=== PATIENT | male | born 1950 | race Caucasian/White ===

== ENCOUNTER 2016-11-25 21:48 | Emergency (ER) | payer OTHER ==
[~2016-11-25] VITALS: Ht 165.1 cm; Wt 68.0 kg
[2016-11-25 21:59] VITALS: BP 157/79
--- NOTE | 2016-11-25 22:14 | ED GENERAL ADULT ---
History of Present Illness General Chief Complaint: Laceration Procedure Stated Complaint: BLEEDING FROM WOUND CAUTERIZED 2 WEEKS AGO Source: patient Exam Limitations: no limitations Allergies Coded Allergies: MDX - Metoclopramide (From REGLAN) (rash 08/19/11) Uncoded Allergies: Allergy Other N Med Allergies N Triage Note: PT TO ED FOR BLEEDING FROM THE SIDE OF HIS RIGHT NOSTRIL, PT STATING HE HAD AN AREA OF SKIN CANCER REMOVED TWO WEEKS AGO AND HAS HAD DIFFICULTY WITH AREA BLEEDING EVER SINCE. ACTIVELY BLEEDING IN TRIAGE, PRESSURE APPLIED WITH ABD PAD. NO THINNERS. Triage Nurses Notes Reviewed? yes Onset: Just prior to arrival Duration: minute(s): (45) Timing: recent history Injury Environment: home Severity: moderate Severity Numbers: 5 No Modifying Factors: none HPI: Patient is a 66-year-old male presenting to the emergency department with chief complaint of bleeding from the right side of his nose. Patient reports that he had a skin cancer removed 3 months ago from a surgeon and was doing well and had an episode of bleeding approximately 2 weeks ago. He saw the surgeon in the office and they had a cauterize the lesion. He's been okay ever since. Denies any lightheadedness dizziness or fatigue. Denies any trauma to the nose. He reports that he was just making a cup of tea when it started bleeding again today. Denies being on any blood thinners. Denies any headaches. No nausea vomiting fevers or chills chest pain or shortness of breath. (MELONIE CASTANEDA,CHIVO) Vital Signs & Intake/Output Vital Signs & Intake/Output Vital Signs Date Time Temp Pulse Resp B/P Pulse O2 O2 Flow FiO2 Ox Delivery Rate 11/25 2210 Room Air 11/25 2159 98.3 89 15 157/79 100 Room Air ED Intake and Output 11/26 0000 11/25 1200 Intake Total Output Total Balance Patient 150 lb Weight Past History Travel History Traveled to [place] past 21 day No Medical History Any Pertinent Medical History? 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 No (CHIVO OBANDO) Review of Systems Review of Systems Constitutional: Reports: no symptoms. Comments Review of systems: See HPI, All other systems negative. Constitutional, no chills fever or weight loss HEENT: No visual changes no sore throat no congestion Cardiovascular: No chest pain ,palpitation Skin, no jaundice no rashes Respiratory: No dyspnea cough sputum or hemoptysis GI: No nausea no vomiting : No dysuria No hematuria Muscle skeletal: no back pain, no neck pain, Neurologic: No numbness no confusion NO ZAYAS Psych: No stress anxiety Immunology: No splenectomy or history of AIDS (CHIVO OBANDO) Physical Exam Physical Exam General Appearance: well developed/nourished, no apparent distress, alert, awake , comfortable Comments: Well-developed well-nourished person in no acute distress HEENT: Pupils equally round and reactive to light and accommodation. Nose has bleeding lesion. No septal hematoma appreciated. No pallor to palpable conjunctiva. Pharynx normal. No swelling or edema. Neck: Normal inspection Back: NontendeR Cardiovascular: Regular rate and rhythms no murmurs rubs or gallops, normal JVP Respiratory: No respiratory distress. Extremity: No edema Neuro: Alert oriented x3, motor sensory normal Skin: Bleeding 1 cm lesion noted on the right nARE. No surrounding erythema or edema. Nontender to palpation. Psych: Mood and affect is normal, memory and judgment is normal. Core Measures ACS in differential dx? No CVA/TIA Diagnosis: No Severe Sepsis Present: No Septic Shock Present: No (CHIVO OBANDO) Progress Differential Diagnoses I considered the following diagnoses in my evaluation of the patient: Laceration, abrasion, contusion, hematoma, bleeding at the surgical incisioN site Plan of Care: 11/25/2016 10:22:11 PM patient is alert and oriented, well-appearing, not on any blood tHINNERS. KALSTAT APPLIED. Electrocautery attempted, call staff applied afterwards. Pressure will be held. Initial ED EKG: none Hand-Off Endorsed To: EDNA RENEE MD Endorsed Time: 2257 Pending: other (CHIVO OBANDO) Differential Diagnoses I considered the following diagnoses in my evaluation of the patient: Plan of Care: 23:55 pm patient sleeping, no active bleeding. Patient discharged and he will follow up with his pathology tech. (EDNA RENEE MD) Departure Departure Disposition: HOME OR SELF CARE Condition: Stable Clinical Impression Primary Impression: Hemorrhage of skin lesion Referrals: SHADY JOHNSON MD (PCP/Family) Additional Instructions: Follow-up with your surgeon tomorrow. Return for worsening symptoms or concerns. Avoid touching the area. Departure Forms: Customer Survey General Discharge Information (CHIVO OBANDO) Departure Time of Disposition: 2358 PA/WINDOW DRAPER Co-Sign Statement Statement: ED Attending supervision documentation- [X] I saw and evaluated the patient. I have also reviewed all the pertinent lab results and diagnostic results. I agree with the findings and the plan of care as documented in the PA's/WINDOW DRAPER's documentation. [X] I have reviewed the ED Record and agree with the PA's/WINDOW DRAPER's documentation. [] Additions or exceptions (if any) to the PAs/WINDOW DRAPER's note and plan are summarized below: [] (EDNA RENEE MD) Critical Care Note Critical Care Note Critical Care Time: non-applicable (CHIVO OBANDO)
== END 2016-11-26 00:22 ==
LOC: ERH 21:48
DX: L98.9 Disorder of the skin and subcutaneous tissue, unspecified (principal); R23.3 Spontaneous ecchymoses
CPT/HCPCS: 99282

== ENCOUNTER → 2018-03-12 | Day surgery (SDC) | payer OTHER ==
[~2018-03-12] VITALS: Ht 160 cm; Wt 72.6 kg
[~2018-03-12] MED LIST: AMLODIPINE BESYL5 M1 PO; ATENOLOL25 M1 PO; ATORVASTATIN CA20 M1 PO; BONIVA150 M1 PO; CLONAZEPAM0.5 M2 PO; CYCLOBENZAPRINE10 M1 PO; CYMBALTA60 M1 PO; ESCITALOPRAM OX10 MG PO; FUROSEMIDE40 M1 PO; GABAPENTIN400 M2 PO; IBUPROFEN800 M1 PO; LISINOPRIL20 M1 PO; MAGNESIUM500 M2 PO; MARI INH; MULTIVITAMINS1 EAC9 PO; PREDNISONE20 M1 PO; TURMERIC500 M2 PO; VITAMIN D2000 UNIT PO; [UNRECOGNIZED DRUG - OTHER] PO
--- NOTE | 2018-03-12 11:09 | Operative Report ---
Operative/Inv Procedure Report Surgery Date: 03/12/18 Name of Procedure: Left flexor hallucis longus tendon transfer for Achilles reconstruction Pre-Operative Diagnosis: Chronic left Achilles tendon rupture Post-Operative Diagnosis: Same Estimated Blood Loss: scant Surgeon/Stock Dealer: Vamshi SIDHU,Gus Colon Anesthesia: laryngeal mask airway IV Fluids: See anesthesia record Implants: Arthrex Bio-Tenodesis screw bio composite Drains: None Specimens: Achilles tendon left Tourniquet: 27 minutes Complications: None Condition: Stable Operative Indication: Patient is a 68-year-old male with chronic left Achilles tendon rupture with pain and difficulty in bending due to weakness. Risks and benefits of procedure were discussed and he wished to proceed with a left flexor hallucis tendon transfer. His skill set hands was necessary provided by physician producer assistant trauma generated with limb positioning and retraction as well as passage of the tendon with the Bio-Tenodesis set. Operative/Procedure Note Note: Once informed consent was obtained and the correct limb was identified to the operating room placed on the table in supine position. After demonstration of general endotracheal anesthesia patient's left leg had a thigh tourniquet placed was prepped and draped in sterile fashion. To begin the procedure in a paramedial incision was made just medial to the Achilles tendon border of the left hindfoot. Sharp dissection was carried down through skin and subcu tissue. The stump of the Achilles tendon was identified off of the calcaneal tuberosity. This was debrided sharply. There is a large With no significant tendon proximally. The posterior tuberosity of the calcaneus was exposed for placement of the Bio-Tenodesis screw and later. Next the neck was made in the posterior fascia of the leg in the posterior muscle belly of the flexor hallucis tendon was identified by flexing the great toe. The muscle belly and tendon were identified and isolated. With the the toe in full flexion the tendon was harvested without complication. Care was taken avoid any neuro vascular structures in the posterior leg. Once the tendon been harvested a fiber loop whipstitch was placed along the tendon for preparation of passage. The tendon was then sized to be a size 6 in diameter. A guidewire was placed through the posterior tuberosity of the calcaneus and brought out through the plantar surface of the foot. We chose to ream with a size 6 reamer and use of 5.5 biointerference screw. The calcaneal tuberosity was reamed to a depth of 20 mm with the 6 reamer. The tendon was then placed through the eyelet and the guidewire and the guidewire was pulled through the foot in the tendon was brought into the tunnel without complication. A size 5.5 Arthrex Bio-Tenodesis screw was then placed into the tunnel to secure fixation of the tendon. An excellent fit was obtained with good tension of the reconstructed flexor hallucis longus tendon. At this point the wound was copiously irrigated with sterile saline. The subcutaneous tissues closed with 3-0 Vicryl interrupted sutures and the skin was closed with 3-0 nylon interrupted sutures. A sterile dressing was applied and the patient was awakened taken recovery in stable condition.
== END ==
LOC: STS 03:21
DX: M66.362 Spontaneous rupture of flexor tendons, left lower leg (principal); I10 Essential (primary) hypertension; E78.00 Pure hypercholesterolemia, unspecified; G89.29 Other chronic pain
CPT/HCPCS: C1713; C9290; J0131; J0690; J1100; J1885; J2250; J2405